=== PATIENT | male | born 1960 | race Caucasian/White ===

== ENCOUNTER 2018-11-23 10:18 | Outpatient (REF) | payer BC, SELFPAY ==
[2018-11-23 13:45] LABS: Anion Gap 10.1 mmol/L (3-11); BUN 23 mg/dL (7-18); CO2 27.9 mmol/L (21.0-32.0); CREATININE 0.79 mg/dL (0.70-1.30); Calcium 8.9 mg/dL (8.5-10.1); Chloride 100 mmol/L (98-107); Glucose 103 mg/dL (70-100); Potassium 3.6 mmol/L (3.5-5.1); Sodium 138 mmol/L (136-145)
[2018-11-24 09:48] LABS: Hepatitis C Ab w Rflx HCV PCR Negative (NEGAT)
== END 2018-11-23 10:38 ==
LOC: NCHCN 10:18
PROVIDERS: PCP Internal Medicine; Visit Provider Internal Medicine
DX: E78.5 Hyperlipidemia, unspecified (principal); I10 Essential (primary) hypertension
CPT/HCPCS: 80048; 86803

== ENCOUNTER 2020-04-23 14:06 | Outpatient (REF) | payer BC, SELFPAY ==
[2020-04-26 17:15] LABS: Patient Race White; SARS-CoV-2 RNA Undetected (Undetected); SARS-CoV-2 Specimen Source Nasal
== END 2020-04-23 14:26 ==
LOC: NCHCN 14:06
PROVIDERS: PCP Internal Medicine; Visit Provider Internal Medicine
DX: Z11.59 Encounter for screening for other viral diseases (principal)
CPT/HCPCS: U0003

== ENCOUNTER 2020-09-17 15:07 | Outpatient (REF) | payer BC, SELFPAY ==
[2020-09-17 13:21] LABS: HCT 49.9 % (40.0-50.0); HGB 16.5 g/dL (13.5-17.5); MCH 29.7 pg (27.0-33.0); MCHC 33.1 % (32.0-36.0); MCV 89.9 fL (80-95); MPV 10.9 fL (8.0-11.0); Platelet Count 154 10^3/uL (130-400); RBC 5.55 10^6/uL (4.36-5.78); RDW-SD 42.8 fL; WBC 6.33 10^3/uL (4.4-10.8)
[2020-09-17 13:34] LABS: ALT 42 U/L (16-63); AST 23 U/L (15-37); Albumin 3.9 g/dL (3.4-5.0); Alkaline Phosphatase 107 U/L (46-116); Anion Gap 5.7 mmol/L (3-11); BUN 13 mg/dL (7-18); Bilirubin, Total 0.5 mg/dL (0.2-1.0); CO2 30.3 mmol/L (21.0-32.0); CREATININE 0.8 mg/dL (0.70-1.30); Calcium 9.4 mg/dL (8.5-10.1); Chloride 102 mmol/L (98-107); Glucose 105 mg/dL (74-106); Sodium 138 mmol/L (136-145); Total Protein 7.1 g/dL (6.4-8.2)
== END 2020-09-17 15:08 | disposition home or self-care (01) ==
LOC: NCHCN 15:07
PROVIDERS: PCP Internal Medicine; Visit Provider Internal Medicine
DX: I10 Essential (primary) hypertension (principal); M79.661 Pain in right lower leg
CPT/HCPCS: 80053; 85027; 83735

== ENCOUNTER 2020-09-18 01:05 | Outpatient (CLI) | payer BC, SELFPAY ==
--- NOTE | 2020-09-18 | DI.US_ITS ---
EXAM: US LOWER EXTREMITY VENOUS RT CLINICAL HISTORY: MUSCLE CRAMPS,SWELLING RT LOWER LEG, R22.41,RT CALF PAIN,M79.661 TECHNIQUE: Ultrasound performed using standard protocol. COMPARISON: No exams were available for comparison FINDINGS: Duplex venous ultrasound of the right lower extremity was performed according to the usual protocol. There is no evidence of a deep venous thrombosis. There is a 4.7 by 6.5 x 1.5 cm in diameter septated collection of fluid in the calf, this appears to be contiguous with a 24 x 8 by 5 millimeter in diameter collection in the popliteal fossa, the findin gs as described are consistent with a Mtz's cyst extending into the calf. IMPRESSION: DATA REPOSITORY:
== END 2020-09-18 01:06 ==
LOC: DI 01:05
PROVIDERS: PCP Internal Medicine; Visit Provider Internal Medicine
DX: R22.41 Localized swelling, mass and lump, right lower limb (principal); M79.661 Pain in right lower leg
CPT/HCPCS: 93971

== ENCOUNTER 2021-04-18 16:46 | Outpatient (REF) | payer BC, SELFPAY ==
[2021-04-20 17:19] LABS: COVID-19 RT-PCR UVMMC Result Negative (Negative)
== END 2021-04-18 16:47 | disposition home or self-care (01) ==
LOC: NCHCN 16:46
PROVIDERS: PCP Internal Medicine; Visit Provider Nurse Practitioner Family
DX: Z20.822 Contact with and (suspected) exposure to COVID-19 (principal); J98.8 Other specified respiratory disorders
CPT/HCPCS: U0003

== ENCOUNTER 2021-06-03 16:15 | Outpatient (REF) | payer BC, SELFPAY ==
[2021-06-03 22:05] LABS: Abs Immature Grans 0.03 10^3/uL (0.0-0.06); Absolute Basophil Count 0.02 10^3/uL (0.0-0.2); Absolute Lymphocyte Count 0.59 10^3/uL (1.2-3.4); Absolute Monocyte Count 0.39 10^3/uL (0.1-0.8); Absolute Neutrophil Count 7.83 10^3/uL (1.2-6.7); Basophils % 0.2; HCT 47.6 % (40.0-50.0); HGB 15.6 g/dL (13.5-17.5); Immature Grans % 0.3; Lymphocytes % 6.7; MCH 29.9 pg (27.0-33.0); MCHC 32.8 % (32.0-36.0); MCV 91.2 fL (80-95); MPV 11.3 fL (8.0-11.0); Monocytes % 4.4; Neutrophils % 88.4; Nucleated RBC 0 %; Platelet Count 155 10^3/uL (130-400); RBC 5.22 10^6/uL (4.36-5.78); RDW 13.4 % (11.8-14.1); RDW-SD 45.1 fL; WBC 8.86 10^3/uL (4.4-10.8)
[2021-06-03 22:15] LABS: ALT 44 U/L (16-63); AST 22 U/L (15-37); Alkaline Phosphatase 94 U/L (46-116); Anion Gap 7.3 mmol/L (3-11); BUN 15 mg/dL (7-18); Bilirubin, Total 0.5 mg/dL (0.2-1.0); CO2 31.7 mmol/L (21.0-32.0); CREATININE 0.9 mg/dL (0.70-1.30); Calcium 8.8 mg/dL (8.5-10.1); Chloride 101 mmol/L (98-107); Glucose 143 mg/dL (74-106); Potassium 4.1 mmol/L (3.5-5.1); Sodium 140 mmol/L (136-145); Total Protein 7.1 g/dL (6.4-8.2)
== END 2021-06-03 16:16 | disposition home or self-care (01) ==
LOC: NCHCN 16:15
PROVIDERS: PCP Internal Medicine; Visit Provider Family Medicine
DX: I10 Essential (primary) hypertension (principal); R55 Syncope and collapse
CPT/HCPCS: 80053; 85025

== ENCOUNTER 2021-06-25 09:49 | Outpatient (REF) | payer BC, SELFPAY ==
[2021-06-25 20:20] LABS: COVID-19 RT-PCR UVMMC Result Negative (Negative)
== END 2021-06-25 09:50 | disposition home or self-care (01) ==
LOC: NCHCN 09:49
PROVIDERS: PCP Internal Medicine; Visit Provider Internal Medicine
DX: Z20.822 Contact with and (suspected) exposure to COVID-19 (principal); J06.9 Acute upper respiratory infection, unspecified
CPT/HCPCS: U0003

== ENCOUNTER 2021-07-23 17:14 | Outpatient (REF) | payer BC, SELFPAY ==
[2021-07-24 00:29] LABS: COVID-19 RT-PCR UVMMC Result Negative (Negative)
== END 2021-07-23 17:15 | disposition home or self-care (01) ==
LOC: NCHCN 17:14
PROVIDERS: PCP Internal Medicine; Visit Provider Internal Medicine
DX: Z20.822 Contact with and (suspected) exposure to COVID-19 (principal)
CPT/HCPCS: U0003

== ENCOUNTER 2021-08-01 18:14 | Outpatient (REF) | payer BC, SELFPAY ==
[2021-08-01 21:23] LABS: D-Dimer 871 ng/mlFEU (<500)
[2021-08-02 09:18] LABS: COVID-19 RT-PCR UVMMC Result Positive (Negative)
== END 2021-08-01 18:15 | disposition home or self-care (01) ==
LOC: NCHCN 18:14
PROVIDERS: PCP Internal Medicine; Visit Provider Internal Medicine
DX: R55 Syncope and collapse (principal); Z20.822 Contact with and (suspected) exposure to COVID-19
CPT/HCPCS: U0003; 85379

== ENCOUNTER 2021-11-13 02:00 | Outpatient (CLI) | payer BC, SELFPAY ==
--- NOTE | 2021-11-13 11:21 | DI.RAD_ITS ---
Exam(s) XR SHOULDER LT COMPLETE 2+V EXAM: XR SHOULDER LT COMPLETE 2+V CLINICAL HISTORY: LT ROTATOR CUFF SYNDROME,M75.102,DECREASED RANGE OF MOTION,PROGRESSIVE PAIN. TECHNIQUE: 2D digital imaging was performed. Five views. COMPARISON: No exams were available for comparison FINDINGS: BONES: No acute fracture is present. No bony destructive lesion is seen. Prominent spurring inferior humeral head. Sclerosis and subchondral cyst formation glenoid and humeral head.. JOINTS: No dislocation present. Severe narrowing of the glenohumeral joint space, [id number] appea juan josé. Mild degenerative changes AC joint. SOFT TISSUE: Normal. IMPRESSION: Severe degenerative changes of the glenohumeral joint. DATA REPOSITORY: RADIATION DOSE DELIVERED:
== END 2021-11-13 02:20 ==
LOC: DI 02:00
PROVIDERS: PCP Internal Medicine; Visit Provider Internal Medicine
DX: M25.512 Pain in left shoulder (principal); M75.102 Unspecified rotator cuff tear or rupture of left shoulder, not specified as traumatic; M25.812 Other specified joint disorders, left shoulder; M19.012 Primary osteoarthritis, left shoulder
CPT/HCPCS: 73030

== ENCOUNTER 2022-02-04 13:06 | Outpatient (REF) | payer BC, SELFPAY ==
[2022-02-04 15:57] LABS: Calculated LDL 64 mg/dL (<100); Cholesterol 138 mg/dL (<200); HDL Cholesterol 54 mg/dL (40-60); Triglyceride 100 mg/dL (<150)
== END 2022-02-04 13:07 | disposition home or self-care (01) ==
LOC: NCHCN 13:06
PROVIDERS: PCP Internal Medicine; Visit Provider Internal Medicine
DX: I10 Essential (primary) hypertension (principal); I25.10 Atherosclerotic heart disease of native coronary artery without angina pectoris; E66.9 Obesity, unspecified
CPT/HCPCS: 80061

== ENCOUNTER 2022-11-10 11:59 | Outpatient (REF) | payer OTHER, SELFPAY ==
[2022-11-10 15:12] LABS: Anion Gap 9.8 mmol/L (3-11); BUN 15 mg/dL (7-18); CO2 31.2 mmol/L (21.0-32.0); CREATININE 0.9 mg/dL (0.70-1.30); Calcium 9.1 mg/dL (8.5-10.1); Chloride 98 mmol/L (98-107); Estimated GFR 97.17 (mL/min/1.73m2); Glucose 128 mg/dL (74-106); Potassium 3.7 mmol/L (3.5-5.1); Sodium 139 mmol/L (136-145)
== END 2022-11-10 12:00 | disposition home or self-care (01) ==
LOC: NCHCN 11:59
PROVIDERS: PCP Internal Medicine
DX: Z12.11 Encounter for screening for malignant neoplasm of colon (principal); I10 Essential (primary) hypertension; I25.10 Atherosclerotic heart disease of native coronary artery without angina pectoris; E66.9 Obesity, unspecified; E78.5 Hyperlipidemia, unspecified
CPT/HCPCS: 80048

== ENCOUNTER 2023-11-19 16:26 | Outpatient (REF) | payer OTHER, SELFPAY ==
[2023-11-19 15:51] LABS: Anion Gap 6.8 mmol/L (3-11); BUN 18 mg/dL (7-18); CO2 31.2 mmol/L (21.0-32.0); CREATININE 0.8 mg/dL (0.70-1.30); Calcium 9.1 mg/dL (8.5-10.1); Chloride 101 mmol/L (98-107); Estimated GFR 100.06 (mL/min/1.73m2); Glucose 130 mg/dL (74-106); Magnesium 1.8 mg/dL (1.8-2.4); Potassium 3.9 mmol/L (3.5-5.1); Sodium 139 mmol/L (136-145)
[2023-11-19 17:06] LABS: Hemoglobin A1C 6.2 % (<5.7)
== END 2023-11-19 16:27 | disposition home or self-care (01) ==
LOC: NCHCN 16:26
PROVIDERS: PCP Internal Medicine; Visit Provider Family Medicine
DX: I10 Essential (primary) hypertension (principal); E66.9 Obesity, unspecified
CPT/HCPCS: 80048; 83036; 83735

== ENCOUNTER 2024-11-29 17:55 | Outpatient (REF) | payer BC, SELFPAY ==
[2024-11-29 17:02] LABS: Hemoglobin A1C 5.6 % (<5.7)
[2024-11-29 17:08] LABS: ALT 39 U/L (16-63); AST 23 U/L (15-37); Albumin 4.1 g/dL (3.4-5.0); Alkaline Phosphatase 108 U/L (46-116); BUN 17 mg/dL (7-18); Bilirubin, Total 0.7 mg/dL (0.2-1.0); CREATININE 0.8 mg/dL (0.70-1.30); Calcium 9.2 mg/dL (8.5-10.1); Calculated LDL 67 mg/dL (<100); Chloride 103 mmol/L (98-107); Cholesterol 145 mg/dL (<200); Estimated GFR 99.44 (mL/min/1.73m2); Glucose 106 mg/dL (74-106); HDL Cholesterol 53 mg/dL (>or=40); Potassium 4.1 mmol/L (3.5-5.1); Sodium 143 mmol/L (136-145); Total Protein 7.1 g/dL (6.4-8.2); Triglyceride 126 mg/dL (<150)
== END 2024-11-29 17:56 | disposition home or self-care (01) ==
LOC: NCHCN 17:55
PROVIDERS: PCP Internal Medicine; Visit Provider Family Medicine
DX: I10 Essential (primary) hypertension (principal); R73.03 Prediabetes
CPT/HCPCS: 80053; 80061; 83036